=== PATIENT | male | born 1980 | race Hispanic/Latino ===

== ENCOUNTER 2017-03-29 10:25 | Emergency (ER) | payer OTHER ==
[~2017-03-29] VITALS: Ht 167.6 cm; Wt 78.9 kg
[2017-03-29 11:13] LABS: ABSOLUTE BASOPHIL COUNT 0.1 /CUMM (0.0-0.2); ABSOLUTE EOSINOPHIL COUNT 0.4 /CUMM (0.0-0.7); ABSOLUTE LYMPH COUNT 1.5 /CUMM (1.2-3.4); ABSOLUTE MONOCYTE COUNT 0.4 /CUMM (0.10-0.60); EOSINOPHIL % 4.7 % (0-5); GRANULOCYTE % 71.6 % (42.2-75.2); HEMATOCRIT 45.8 % (42-52); MEAN CORPUSCULAR HGB 28.9 PG (27.0-31.0); MEAN CORPUSCULAR HGB CONC 33.6 G/DL (33.0-37.0); MEAN CORPUSCULAR VOLUME 86.2 FL (80.0-94.0); MEAN PLATELET VOLUME 7.4 FL (7.4-10.4); PLATELET COUNT 275 /CUMM (130-400); RBC DISTRIBUTION WIDTH 13.6 % (11.5-14.5); RED BLOOD CELL CT 5.32 /CUMM (4.70-6.10); WHITE BLOOD CELL COUNT 8.4 /CUMM (4.8-10.8)
--- NOTE | 2017-03-29 12:13 | ED GI/GU/ABDOMINAL COMPLAINT ---
History of Present Illness General Chief Complaint: Abdominal Pain/Flank Pain Stated Complaint: ABD PAIN Source: patient, old records, friend Exam Limitations: no limitations Vital Signs & Intake/Output Vital Signs & Intake/Output Vital Signs Date Time Temp Pulse Resp B/P B/P Pulse O2 O2 Flow FiO2 Mean Ox Delivery Rate 03/29 1419 76 18 113/75 99 Room Air 03/29 1222 97.3 76 18 117/76 96 Room Air 03/29 1110 Room Air Room Air 03/29 1038 96.5 74 15 114/74 100 Room Air Allergies Coded Allergies: No Known Allergies (03/29/17) Triage Note: PT TO ED FOR R SIDED ABD PAIN SINCE FRIDAY, SEEN AT [facility] FOR SAME ON FRIDAY "BUT THEY DID NOTHING I WAITED FOR TOO LONG". PT DENIES N/V/D. Triage Nurses Notes Reviewed? yes Duration: day(s):, constant, continues in ED, waxing and waning Timing: recent history Quality/Severity: moderate, sharpness, severe Location: right flank, right lower quadrant Radiation: back Activities at Onset: none Prior Abdominal Problems: none Past Sexual History: Unobtainable at this time Modifying Factors: Worsens With: palpation. Associated Symptoms: abdominal pain, diarrhea, nausea/vomiting HPI: 4 days prior to admission patient complains of intermittent waxing and waning moderate to severe right flank pain radiating to back associated with nausea. He denies fever chills vomiting diarrhea chest pain cough shortness of breath headache dysuria rash bleeding. Past History Travel History Traveled to [place] past 21 day No Medical History Any Pertinent Medical History? none Neurological: NONE EENT: NONE Cardiovascular: NONE Respiratory: NONE Gastrointestinal: NONE Hepatic: NONE Renal: NONE Musculoskeletal: NONE Psychiatric: NONE Endocrine: NONE Blood Disorders: NONE Cancer(s): NONE Surgical History Surgical History: appendectomy Psychosocial History What is your primary language [place] Tobacco Use: Never used ETOH Use: occasional use Illicit Drug Use: denies illicit drug use Family History Hx Contributory? No Review of Systems Review of Systems Constitutional: Reports: no symptoms. EENTM: Reports: no symptoms. Respiratory: Reports: no symptoms. Cardiovascular: Reports: no symptoms. GI: Reports: see HPI, abdominal pain, nausea. Genitourinary: Reports: no symptoms. Musculoskeletal: Reports: no symptoms. Skin: Reports: no symptoms. Neurological/Psychological: Reports: no symptoms. Hematologic/Endocrine: Reports: no symptoms. Immunologic/Allergic: Reports: no symptoms. All Other Systems: Reviewed and Negative Physical Exam Physical Exam General Appearance: well developed/nourished, alert, awake, anxious, severe distress, thin Head: atraumatic, normal appearance Eyes: Bilateral: normal appearance, PERRL, EOMI, normal inspection. Ears, Nose, Throat, Mouth: hearing grossly normal, moist mucous membrane Neck: normal inspection, supple, full range of motion, normal alignment Respiratory: normal breath sounds, chest non-tender, no respiratory distress, quiet respiration, lungs clear Cardiovascular: regular rate/rhythm, normal peripheral pulses, norml femoral pulses equa Peripheral Pulses: 4+ carotid (R), 4+ carotid (L) Gastrointestinal: normal bowel sounds, soft, non-tender, no organomegaly Male Genitals: normal genitalia Back: normal inspection, normal range of motion, no vertebral tenderness Extremities: normal range of motion, no ligament instability Neurologic/Psych: no motor/sensory deficits, awake, alert, oriented x 3, normal gait, normal mood/affect, 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 No Severe Sepsis Present: No Septic Shock Present: No Progress Differential Diagnosis: appendicitis, biliary colic, gastritis, pancreatitis, ureterolithiasis, UTI/pyelo Plan of Care: Orders Procedure Date/time Status URINALYSIS 03/29 1051 Complete LIPASE 03/29 1051 Complete HIGH SENSITIVITY CRP 03/29 1051 Complete COMPREHENSIVE METABOLIC PANEL 03/29 1051 Complete CBC WITHOUT DIFFERENTIAL 03/29 1051 Complete Laboratory Tests 03/29/17 1311: Urine Color YEL, Urine Clarity CLEAR, Urine pH 7.5, Ur Specific [place] 1.015, Urine Protein NEG, Urine Ketones TRACE H, Urine Nitrite NEG, Urine Bilirubin NEG, Urine Urobilinogen 0.2, Ur Leukocyte Esterase NEG, Ur Microscopic SEDIMENT EXAMINED, Urine RBC 5-10 H, Urine WBC 1-3 H, Ur Epithelial Cells RARE, Urine Hemoglobin MOD H, Urine Glucose NEG 03/29/17 1130: Anion Gap 9, Estimated GFR > 60, BUN/Creatinine Ratio 17.1, Glucose 93, Calcium 8.5, Total Bilirubin 1.2, AST 22, ALT 44, Alkaline Phosphatase 63, C-React Prot High Sens 8.9 H, Total Protein 6.3, Albumin 3.9, Globulin 2.4, Albumin/Globulin Ratio 1.6, Lipase 97 03/29/17 1100: CBC w Diff NO MAN DIFF REQ, RBC 5.32, MCV 86.2, MCH 28.9, RDW 13.6, MPV 7.4, Gran % 71.6, Lymphocytes % 17.7 L, Monocytes % 5.0, Eosinophils % 4.7, Basophils % 1.0, Absolute Granulocytes 6.0, Absolute Lymphocytes 1.5, Absolute Monocytes 0.4, Absolute Eosinophils 0.4, Absolute Basophils 0.1, PUBS MCHC 33.6 Diagnostic Imaging: Viewed by Me: Ultrasound. Discussed w/RAD: Ultrasound. Radiology Impression: 1. Bilateral subcentimeter echogenic foci are suspicious for nonobstructing renal calculi. 2. No evidence of hydronephrosis. Initial ED EKG: none Departure Departure Time of Disposition: 1544 Disposition: HOME OR SELF CARE Condition: Stable Clinical Impression Primary Impression: Renal colic on right side Referrals: NICKO MOLINA,ABRAN Deluna Call for urology follow up Departure Forms: Customer Survey General Discharge Information Prescriptions: Current Visit Scripts Ibuprofen 1 TAB PO Q6PRN PRN pain #50 TAB with food Tramadol HCl (Ultram) 1-2 TAB PO Q6PRN PRN severe pain #30 TAB Tamsulosin HCl (Flomax) 1 CAP PO DAILY #15 CAP
--- NOTE | 2017-03-29 15:10 | ULTRASOUND REPORT ---
EXAMINATION: US RETROPERITONEAL COMPLETE (RENAL) CLINICAL INFORMATION: Right flank pain. COMPARISON: None TECHNIQUE: Real-time imaging of the kidneys and bladder. FINDINGS: RIGHT KIDNEY: 9.9 x 4.9 x 5.3 cm (SAG x AP x TRV). The kidney is normal in size, contour, and echogenicity. Renal cortical thickness is normal. No focal parenchymal lesions. No hydronephrosis. There is a subcentimeter echogenic focus in the upper pole of the right kidney, which may reflect a nonobstructing calculus. LEFT KIDNEY: 11.2 x 6.6 x 5.7 cm (SAG x AP x TRV). The kidney is normal in size, contour, and echogenicity. Renal cortical thickness is normal. No focal parenchymal lesions. No hydronephrosis. There is a subcentimeter echogenic focus in the upper pole of the left kidney which is suspicious for a nonobstructing calculus. BLADDER: Well-distended and normal. Bilateral ureteral jets are demonstrated. Prevoid bladder volume is 297 mL. IMPRESSION: 1. Bilateral subcentimeter echogenic foci are suspicious for nonobstructing renal calculi. 2. No evidence of hydronephrosis.
[2017-03-29] MEDS ORDERED: ULTRAM50 M1 PO (15:47)
[2017-03-29] MEDS ORDERED: IBUPROFEN600 M1 PO (15:47)
[2017-03-29] MEDS ORDERED: FLOMAX0.4 M1 PO (15:47)
[2017-03-29 16:05] VITALS: BP 111/82
== END 2017-03-29 16:06 ==
LOC: ERH 10:25
PROVIDERS: Emergency Medicine
DX: N23 Unspecified renal colic (principal)
CPT/HCPCS: 76775; 81001; 96374; 96375; J1885; J2405